=== PATIENT | female | born 1990 | race African-American/Black ===

== ENCOUNTER 2017-05-23 08:06 | Emergency (ER) | payer SELFPAY ==
[~2017-05-23] VITALS: Ht 162.6 cm; Wt 64.9 kg
[~2017-05-23 08:06] MED LIST: ALBUTEROL SULF8.5 GM INH; ANTIVERT25 MG ORAL; IBUPROFEN600 MG ORAL; IBUPROFEN600 MG PO; NEXIUM40 MG ORAL; NKM; ROBAXIN-750750 MG PO
[2017-05-23] MEDS ORDERED: NKM (08:13)
[2017-05-23] MEDS ORDERED: DiphenhydrAMINE 50mg/ml Inj IVP ONE (08:15)
[2017-05-23] MEDS ORDERED: Metoclopramide 10mg/2ml Inj IVP ONE (08:15)
[2017-05-23 08:25] VITALS: BP 120/68
[2017-05-23] MEDS ORDERED: LORazepam Inj 2mg/ml 1ml IV ONE (08:30)
--- NOTE | 2017-05-23 08:33 | Emergency Room Report ---
History of Present Illness General Chief Complaint: Nausea, Vomiting, and Diarrhea Source: Patient, Medical Record Present Illness HPI Patient presents fairly histrionic complaining of nausea vomiting Also complains of epigastric discomfort Patient reports the pain started this morning Upon arriving into the room patient was touching herself in the privates And soon after that began gagging herself to induce vomiting At this time denies any chest pain denies any back or flank pain The epigastric pain is 3/10 burning but the patient's mainly concerned about nausea as well Allergies: Coded Allergies: No Known Allergies (Unverified , 07/27/12) Patient History Past Medical History: see triage record Pertinent Family History: none Reviewed Nursing Documentation: PMH: Agreed, PSxH: Agreed Nursing Documentation-PMH Past Medical History: No History, Except For Hx Gastrointestinal Problems: Yes - GERD Review of Systems All Other Systems: negative except mentioned in HPI Physical Exam Vital Signs Date Time Temp Pulse Resp B/P Pulse Ox O2 Delivery O2 Flow Rate FiO2 05/23/17 08:11 97.5 66 20 111/72 97 Room Air Sp02 EP Interpretation: reviewed, normal General Appearance: mild distress - somewhat histrionic Head: normocephalic, atraumatic Eyes: bilateral eye EOMI, bilateral eye PERRL ENT: hearing grossly normal, normal pharynx, TMs + canals normal, uvula midline Neck: full range of motion, supple, no meningismus, no bony tend Respiratory: lungs clear, normal breath sounds, no rhonchi, no respiratory distress, no retraction, no accessory muscle use Cardiovascular #1: normal peripheral pulses, regular rate, rhythm, no edema, no gallop, no JVD, no murmur Gastrointestinal: normal bowel sounds, non tender - On palpation however subjectively points epigastric area, soft, no mass, no organomegaly, non- distended, no guarding, no hernia, no pulsatile mass, no rebound Genitourinary: no CVA tenderness Musculoskeletal: normal inspection, back normal Neurologic: oriented x3, responsive, floor trader III-XII nml as tested, motor strength/ tone normal, sensory intact Psychiatric: other - Somewhat histrionic Skin: normal color, no rash, warm/dry, palpation normal Lymphatic: normal inspection, no adenopathy Medical Decision Making Diagnostic Impression: Primary Impression: Nausea, vomiting, and diarrhea ER Course With the patient's history and examination, multiple differentials considered, including but not limited to , ectopic , ovarian torsion, gastritis, cholecystitis, pancreatitis, appendicitis After further intervention patient has significantly better White blood cell count was very minimally elevated Patient has had several presentations with fairly similar findings I did discuss with him possible marijuana use, leading to cyclical vomiting type pathology Patient did not require acute emergency CAT scan any as her abdomen remained soft and reevaluation reveals improved conditions the patient will have close outpatient followup Labs Test 05/23/17 08:29 White Blood Count 12.3 K/UL (4.8-10.8) Red Blood Count 4.20 M/UL (4.20-5.40) Hemoglobin 13.4 G/DL (12.0-16.0) Hematocrit 42.1 % (37.0-47.0) Mean Corpuscular Volume 100 FL (80-99) Mean Corpuscular Hemoglobin 32.0 PG (27.0-31.0) Mean Corpuscular Hemoglobin Concent 31.9 G/DL (32.0-36.0) Red Cell Distribution Width 12.4 % (11.6-14.8) Platelet Count 281 K/UL (150-450) Mean Platelet Volume 7.5 FL (6.5-10.1) Neutrophils (%) (Auto) 68.1 % (45.0-75.0) Lymphocytes (%) (Auto) 23.5 % (20.0-45.0) Monocytes (%) (Auto) 6.2 % (1.0-10.0) Eosinophils (%) (Auto) 0.9 % (0.0-3.0) Basophils (%) (Auto) 1.2 % (0.0-2.0) Urine Color Pale yellow Urine Appearance Clear Urine pH 5 (4.5-8.0) Urine Specific [place] 1.020 (1.005-1.035) Urine Protein 1+ (NEGATIVE) Urine Glucose (UA) Negative (NEGATIVE) Urine Ketones Negative (NEGATIVE) Urine Occult Blood Negative (NEGATIVE) Urine Nitrite Negative (NEGATIVE) Urine Bilirubin Negative (NEGATIVE) Urine Urobilinogen Normal MG/DL (0.0-1.0) Urine Leukocyte Esterase 1+ (NEGATIVE) Urine RBC 2-4 /HPF (0 - 2) Urine WBC 0-2 /HPF (0 - 2) Urine Squamous Epithelial Cells Occasional /LPF Urine Bacteria Few /HPF (NONE) Urine Mucus Few /LPF (NONE/OCC) Urine HCG, Qualitative Negative Sodium Level 141 mEQ/L (135-145) Potassium Level 3.4 mEQ/L (3.4-4.9) Chloride Level 101 mEQ/L (98-107) Carbon Dioxide Level 25 mEQ/L (20-30) Anion Gap 15 (5-15) Blood Urea Nitrogen 12 mg/dL (7-23) Creatinine 1.1 mg/dL (0.5-0.9) Estimat Glomerular Filtration Rate > 60 mL/min (>60) Glucose Level 130 mg/dL (74-106) Calcium Level 10.8 mg/dL (8.6-10.2) Total Bilirubin 0.8 mg/dL (0.0-1.2) Aspartate Amino Transf (AST/SGOT) 24 U/L (5-40) Alanine Aminotransferase (ALT/SGPT) 16 U/L (3-33) Alkaline Phosphatase 41 U/L (35-104) Total Protein 8.9 g/dL (6.6-8.7) Albumin 5.7 g/dL (3.5-5.2) Globulin 3.2 g/dL Albumin/Globulin Ratio 1.7 (1.0-2.7) Lipase 35 U/L (< 60) Urine Opiates Screen Negative (NEGATIVE) Urine Barbiturates Screen Negative (NEGATIVE) Phencyclidine (PCP) Screen Negative (NEGATIVE) Urine Amphetamines Screen Negative (NEGATIVE) Urine Benzodiazepines Screen Negative (NEGATIVE) Urine Cocaine Screen Negative (NEGATIVE) Urine Marijuana (THC) Screen Positive (NEGATIVE) Last Vital Signs Date Time Temp Pulse Resp B/P Pulse Ox O2 Delivery O2 Flow Rate FiO2 05/23/17 08:11 97.5 66 20 111/72 97 Room Air Status: improved Disposition: HOME, SELF-CARE Condition: Improved Scripts Famotidine (PEPCID AC) 20 Mg Tablet 20 MG PO DAILY, #20 TAB Prov: LAMINE MCLAUGHLIN D.O. 05/23/17 Ondansetron Odt* (ZOFRAN ODT*) 4 Mg Tab.rapdis 4 MG ORAL Q6H Y for Nausea & Vomiting, #12 TAB 0 Refills Prov: LAMINE MCLAUGHLIN D.O. 05/23/17 Additional Instructions: Patient is provided with the discharge instructions notified to follow up with primary doctor in the next 2-3 days otherwise return to the er with any worsening symptoms. Please note that this report is being documented using [employer] technology. This can lead to erroneous entry secondary to incorrect interpretation by the dictating instrument. LAMINE MCLAUGHLIN D.O. May 23, 2017 08:32
[2017-05-23 08:37] LABS: APPEARANCE,URINE CLEAR; KETONES,URINE NEGATIVE (NEGATIVE); LEUKOCYTE ESTERASE ,URINE 1+ (NEGATIVE); NITRITE,URINE NEGATIVE (NEGATIVE); PH,URINE 5 (4.5-8.0); PROTEIN,URINE 1+ (NEGATIVE); UROBILINOGEN,URINE NORMAL MG/DL (0.0-1.0)
[2017-05-23 08:39] LABS: BASOPHILS % (AUTO) 1.2 % (0.0-2.0); EOSINOPHILS % (AUTO) 0.9 % (0.0-3.0); LYMPHOCYTES % (AUTO) 23.5 % (20.0-45.0); MEAN CORPUSCULAR HGB CONC 31.9 G/DL (32.0-36.0); MEAN CORPUSCULAR VOLUME 100 FL (80-99); MEAN PLATELET VOLUME 7.5 FL (6.5-10.1); MONOCYTES % (AUTO) 6.2 % (1.0-10.0); NEUTROPHILS % (AUTO) 68.1 % (45.0-75.0); PLATELET COUNT 281 K/UL (150-450); RED CELL DISTRIBUTION WIDTH 12.4 % (11.6-14.8); WHITE BLOOD COUNT 12.3 K/UL (4.8-10.8)
[2017-05-23 08:45] LABS: BACTERIA,URINE FEW /HPF; MUCUS,URINE FEW /LPF (NONE/OCC); SQUAMOUS EPITHELIAL CELL,UR OCCASIONAL /LPF (NONE/OCC); WBC,URINE 0-2 /HPF (0 - 2)
[2017-05-23 08:55] LABS: ALANINE AMINOTRANSFERASE 16 U/L (3-33); ALBUMIN/GLOBULIN RATIO 1.7 (1.0-2.7); ANION GAP 15 (5-15); ASPARTATE AMINO TRANSFERASE 24 U/L (5-40); CALCIUM 10.8 mg/dL (8.6-10.2); CARBON DIOXIDE 25 mEQ/L (20-30); CHLORIDE 101 mEQ/L (98-107); CREATININE 1.1 mg/dL (0.5-0.9); GLOMERULAR FILTRATION RATE > 60 mL/min (>60); HEMOLYSIS 7; LIPASE 35 U/L (< 60); POTASSIUM 3.4 mEQ/L (3.4-4.9); SODIUM 141 mEQ/L (135-145); TOTAL PROTEIN 8.9 g/dL (6.6-8.7)
[2017-05-23 10:35] VITALS: BP 104/57
[2017-05-23] MEDS ORDERED: Morphine Sulfate 4mg/ml Inj IVP ONE (11:30)
[2017-05-23] MEDS ORDERED: Famotidine 20 MG/ 2ML VIAL IVP ONE (11:30)
[2017-05-23] MEDS ORDERED: PEPCID AC20 M2 PO (12:12)
[2017-05-23] MEDS ORDERED: ZOFRAN ODT4 MG ORAL (12:12)
[2017-05-23 12:30] VITALS: BP 104/57
== END 2017-05-23 12:30 | disposition home or self-care (01) ==
LOC: EMR 08:32
DX: R11.2 Nausea with vomiting, unspecified (principal); R19.7 Diarrhea, unspecified; K21.9 Gastro-esophageal reflux disease without esophagitis
CPT/HCPCS: 36415; 80053; 80300; 81003; 81025; 83690; 85025; 96361; 96374; 96375; 99284; J1200; J2270; J2405; J2765; S0028

== ENCOUNTER 2017-10-03 04:10 | Emergency (ER) | payer SELFPAY ==
[~2017-10-03] VITALS: Ht 162.6 cm; Wt 62.1 kg
[~2017-10-03 04:10] MED LIST changes: +PEPCID AC20 M2 PO; +ZOFRAN ODT4 MG ORAL
[2017-10-03 04:21] VITALS: BP 109/67
[2017-10-03] MEDS ORDERED: TESSALON PERLE100 MG ORAL (04:52)
[2017-10-03] MEDS ORDERED: IBUPROFEN600 MG ORAL (04:52)
[2017-10-03] MEDS ORDERED: Acetaminophen 500mg (ES) tab ORAL ONE (05:00)
--- NOTE | 2017-10-03 05:05 | Emergency Room Report ---
History of Present Illness General Chief Complaint: Flu Like Symptoms Source: Patient, Medical Record Present Illness HPI 27-year-old female, no significant past medical history, presenting with subjective chills, cough, no sputum, runny nose, for one day. Denies any sick contacts or recent travel. Denies any shortness of breath Allergies: Coded Allergies: No Known Allergies (Unverified , 07/27/12) Patient History Past Medical History: see triage record Past Surgical History: none Pertinent Family History: none Last Menstrual Period: now Reviewed Nursing Documentation: PMH: Agreed, PSxH: Agreed Nursing Documentation-PMH Past Medical History: No History, Except For Hx Gastrointestinal Problems: Yes - GERD Review of Systems All Other Systems: negative except mentioned in HPI Physical Exam Vital Signs Date Time Temp Pulse Resp B/P (MAP) Pulse Ox O2 Delivery O2 Flow Rate FiO2 10/03/17 04:12 99.1 94 16 109/67 100 Room Air Sp02 EP Interpretation: reviewed, normal General Appearance: normal inspection, well appearing, no apparent distress, alert, GCS 15, non-toxic Head: normocephalic, atraumatic Eyes: bilateral eye normal inspection, bilateral eye PERRL, bilateral eye EOMI ENT: normal ENT inspection, normal pharynx, normal voice, moist mucus membranes Neck: normal inspection, full range of motion, supple Respiratory: normal inspection, lungs clear, normal breath sounds, no respiratory distress, no retraction, no wheezing, speaking full sentences, chest symmetrical Cardiovascular #1: normal inspection, regular rate, rhythm, no edema, normal capillary refill Cardiovascular #2: 2+ radial (R), 2+ radial (L) Gastrointestinal: normal inspection, non tender, soft, non-distended, no guarding Musculoskeletal: normal inspection, back normal, normal range of motion, non- tender Neurologic: normal inspection, alert, oriented x3, responsive, motor strength/ tone normal, sensory intact, normal gait, speech normal Psychiatric: normal inspection, judgement/insight normal, memory normal Skin: normal inspection, normal color, no rash, warm/dry, well hydrated, normal turgor Medical Decision Making Diagnostic Impression: Primary Impression: Influenza-like symptoms ER Course 27-year-old female, appears well, cough and runny nose for one day DDX: Viral URI Plan: None in the emergency room ER course: Patient remains nontoxic, not in resp distress. Disposition: Patient is to be discharged home with a prescription of Motrin and Tessalon Perles Strict precautions discussed with patient on when to return to the emergency room including hemoptysis, high fevers, chills, SOB, chest pain which may indicate severe illness. Patient is to follow up with their primary care doctor within 5 days. Patient agrees with plan. Please note that this Emergency Department Report was dictated using [employer] inspector technology software, occasionally this can lead to erroneous entry secondary to interpretation by the dictation equipment Last Vital Signs Date Time Temp Pulse Resp B/P (MAP) Pulse Ox O2 Delivery O2 Flow Rate FiO2 10/03/17 04:21 94 16 Room Air 10/03/17 04:21 99.1 109/67 100 Disposition: HOME, SELF-CARE Condition: Stable Scripts Ibuprofen* (MOTRIN*) 600 Mg Tablet 600 MG ORAL Q6H Y for For Pain, #30 TAB Prov: Rafael De La Paz M.D. 10/03/17 Benzonatate* (TESSALON PERLE*) 100 Mg Capsule 100 MG ORAL THREE TIMES A DAY for 7 Days, PERLE 0 Refills Prov: Rafael De La Paz M.D. 10/03/17 Referrals: NOT CHOSEN IPA/,REFERRING (PCP) Patient Instructions: Viral Respiratory Infection, [id number] Rafael De La Paz M.D. Oct 03, 2017 05:05
[2017-10-03 05:07] VITALS: BP 109/67
== END 2017-10-03 05:07 | disposition home or self-care (01) ==
LOC: EMR 04:32
DX: J11.1 Influenza due to unidentified influenza virus with other respiratory manifestations (principal); K21.9 Gastro-esophageal reflux disease without esophagitis; R09.89 Other specified symptoms and signs involving the circulatory and respiratory systems
CPT/HCPCS: 99284

== ENCOUNTER 2017-10-16 07:18 | Emergency (ER) | payer SELFPAY ==
[~2017-10-16] VITALS: Ht 162.6 cm; Wt 61.2 kg
[~2017-10-16 07:18] MED LIST changes: +TESSALON PERLE100 MG ORAL
[2017-10-16] MEDS ORDERED: Ketorolac 30mg Inj IV ONE (07:45)
--- NOTE | 2017-10-16 07:48 | Emergency Room Report ---
History of Present Illness General Chief Complaint: Flu Like Symptoms Source: Patient Present Illness HPI She presents with flulike symptoms. She states that for the past day she has had a sore throat, bodyaches and fatigue. She states that she feels hot and cold. She has an occasional cough. She denies chest pain or abdominal pain. She denies nausea or vomiting. She denies diarrhea. She has no other complaints. Allergies: Coded Allergies: No Known Allergies (Unverified , 07/27/12) Patient History Past Medical History: GERD Social History: Reports: drug use - THC, Denies: smoking, alcohol use Last Menstrual Period: 2 weeks ago Now: No Reviewed Nursing Documentation: PMH: Agreed, PSxH: Agreed Nursing Documentation-PMH Past Medical History: No Stated History Hx Gastrointestinal Problems: Yes - GERD Review of Systems All Other Systems: negative except mentioned in HPI Physical Exam Vital Signs Date Time Temp Pulse Resp B/P (MAP) Pulse Ox O2 Delivery O2 Flow Rate FiO2 10/16/17 07:24 98.4 92 16 101/57 100 Room Air Sp02 EP Interpretation: reviewed, normal General Appearance: no apparent distress, alert, GCS 15, non-toxic Head: normocephalic, atraumatic Eyes: bilateral eye normal inspection, bilateral eye PERRL ENT: hearing grossly normal, no angioedema, normal voice, uvula midline, pharyngeal erythema Neck: full range of motion, supple/symm/no masses Respiratory: chest non-tender, lungs clear, normal breath sounds, speaking full sentences Cardiovascular #1: regular rate, rhythm, no edema Gastrointestinal: normal bowel sounds, non tender, soft, non-distended, no guarding, no rebound Rectal: deferred Musculoskeletal: back normal, gait/station normal, normal range of motion, non- tender Neurologic: alert, oriented x3, responsive, motor strength/tone normal, sensory intact, speech normal Psychiatric: judgement/insight normal, memory normal, mood/affect normal, no suicidal/homicidal ideation Skin: normal color, no rash, warm/dry, well hydrated Medical Decision Making Diagnostic Impression: Primary Impression: Viral syndrome ER Course This patient has a clinical presentation consistent with influenza/viral syndrome. There does not appear to be any emergency complications. I do not feel this patient needs admission at this time. The patient stable vital signs. I will give the patient a course of Tamiflu. The patient given close return precautions and followup instructions. Laboratory Tests Test 10/16/17 08:35 Urine Color Pale yellow Urine Appearance Clear Urine pH 9 (4.5-8.0) Urine Specific [place] 1.015 (1.005-1.035) Urine Protein 1+ (NEGATIVE) H Urine Glucose (UA) Negative (NEGATIVE) Urine Ketones Negative (NEGATIVE) Urine Occult Blood Negative (NEGATIVE) Urine Nitrite Negative (NEGATIVE) Urine Bilirubin Negative (NEGATIVE) Urine Urobilinogen Normal MG/DL (0.0-1.0) Urine Leukocyte Esterase 1+ (NEGATIVE) H Urine RBC 0-2 /HPF (0 - 2) Urine WBC 2-4 /HPF (0 - 2) Urine Squamous Epithelial Cells Few /LPF (NONE/OCC) Urine Bacteria Few /HPF (NONE) Urine HCG, Qualitative Negative Microbiology Date/Time Source Procedure Growth Status 10/16/17 08:35 Nasal Nares Influenza Types A,B Antigen (SAHRA) - Final Complete Last Vital Signs Date Time Temp Pulse Resp B/P (MAP) Pulse Ox O2 Delivery O2 Flow Rate FiO2 10/16/17 07:24 98.4 92 16 101/57 100 Room Air Status: improved Disposition: HOME, SELF-CARE Condition: Improved Departure Forms: Return to Work Return to Work in (Days): 3 Return to Work Date: Oct 20, 2017 Patient Instructions: Medication: Tamiflu (Oseltamivir), INFLUENZA (Adult) LISA LEIGH D.O. Oct 16, 2017 07:48
[2017-10-16 08:45] LABS: APPEARANCE,URINE CLEAR; BILIRUBIN, URINE NEGATIVE (NEGATIVE); COLOR,URINE PALE YELLOW; GLUCOSE, URINE (UA) NEGATIVE (NEGATIVE); KETONES,URINE NEGATIVE (NEGATIVE); LEUKOCYTE ESTERASE ,URINE 1+ (NEGATIVE); NITRITE,URINE NEGATIVE (NEGATIVE); PH,URINE 9 (4.5-8.0); PROTEIN,URINE 1+ (NEGATIVE); UROBILINOGEN,URINE NORMAL MG/DL (0.0-1.0)
[2017-10-16] MEDS ORDERED: TAMIFLU75 MG ORAL (10:36)
[2017-10-16 10:59] VITALS: BP 110/50
== END 2017-10-16 10:58 | disposition home or self-care (01) ==
LOC: EMR 08:08
DX: B34.9 Viral infection, unspecified (principal); K21.9 Gastro-esophageal reflux disease without esophagitis; F12.10 Cannabis abuse, uncomplicated
CPT/HCPCS: 81003; 81025; 86710; 96361; 96374; 99284; J1885

== ENCOUNTER 2018-07-30 19:32 | Emergency (ER) | payer MEDICAID ==
[~2018-07-30] VITALS: Ht 162.6 cm; Wt 68.0 kg
[~2018-07-30 19:32] MED LIST changes: +TAMIFLU75 MG ORAL
[2018-07-30 19:40] VITALS: BP 122/69
--- NOTE | 2018-07-30 19:49 | Emergency Room Report ---
History of Present Illness General Chief Complaint: Female Urogenital Problems Source: Patient, Medical Record Present Illness HPI 28-year-old female, , one miscarriage, currently 3 wks p/w vaginal bleeding x 1 days Patient states bleeding began last night, she went to [facility], was diagnosed with threatened miscarriage, had an ultrasound showing a gestational sac, was discharges morning. Then started to have some vaginal bleeding again, Has soaked 3 pads / day. no passage of clots. +crampy abdominal pain. Denies fever, chills, n/v, diarrhea, dysuria. Denies hx of ectopic pregnancies. Allergies: Coded Allergies: IBUPROFEN (Verified Allergy, Unknown, 07/30/18) Patient History Past Medical History: see triage record Past Surgical History: none Pertinent Family History: none Now: Yes Reviewed Nursing Documentation: PMH: Agreed; PSxH: Agreed Nursing Documentation-PMH Past Medical History: No History, Except For Hx Gastrointestinal Problems: Yes - GERD Review of Systems All Other Systems: negative except mentioned in HPI Physical Exam Vital Signs Date Time Temp Pulse Resp B/P (MAP) Pulse Ox O2 Delivery O2 Flow Rate FiO2 07/30/18 19:36 97.9 79 15 122/69 99 Room Air Sp02 EP Interpretation: reviewed, normal General Appearance: alert, GCS 15, non-toxic, mild distress Head: normocephalic, atraumatic Eyes: bilateral eye normal inspection, bilateral eye PERRL, bilateral eye EOMI ENT: normal ENT inspection, normal pharynx, normal voice, moist mucus membranes Neck: normal inspection, full range of motion, supple Respiratory: normal inspection, lungs clear, normal breath sounds, no respiratory distress, no retraction, no wheezing, speaking full sentences, chest symmetrical Cardiovascular #1: normal inspection, regular rate, rhythm, no edema, normal capillary refill Cardiovascular #2: 2+ radial (R), 2+ radial (L) Gastrointestinal: normal inspection, non tender, soft, non-distended, no guarding Musculoskeletal: normal inspection, back normal, normal range of motion, non- tender Neurologic: normal inspection, alert, oriented x3, responsive, motor strength/ tone normal, sensory intact, normal gait, speech normal Psychiatric: normal inspection, judgement/insight normal, memory normal Skin: normal inspection, normal color, no rash, warm/dry, well hydrated, normal turgor Medical Decision Making Diagnostic Impression: Primary Impression: Threatened in first trimester ER Course 28-year-old female, 3 weeks presents with vaginal bleeding pt has bhcg done at outside hospital 9am, bhcg 1305 DDX: Threatened / inevitable vs. ectopic Plan: cbc, bmp, bhcg, type and screen, ua, ucx pelvic sono Consider Rhogam is Rh- ER course: Pelvic sono: NO IUP has had some vaginal bleeding in ED. however nontoxic appearing, not dizzy. Pt has been ambulatory. VSS Disposition: Signed out to Dr. Ana sutton [facility] with [facility] for repeat bhcg and sono Please note that this Emergency Department Report was dictated using [employer] transcription editor technology software, occasionally this can lead to erroneous entry secondary to interpretation by the dictation equipment. CT/MRI/US Diagnostic Results CT/MRI/US Diagnostic Results : Imaging Test Ordered: PELVIC SONO Impression no IUP noted. small anechoic area but likely does not appear to be gestational sac, per US tech read Last Vital Signs Date Time Temp Pulse Resp B/P (MAP) Pulse Ox O2 Delivery O2 Flow Rate FiO2 07/30/18 19:36 97.9 79 15 122/69 99 Room Air Rafael De La Paz M.D. Jul 30, 2018 19:49
[2018-07-30 21:40] LABS: APPEARANCE,URINE CLEAR; BILIRUBIN, URINE NEGATIVE (NEGATIVE); COLOR,URINE PALE YELLOW; GLUCOSE, URINE (UA) NEGATIVE (NEGATIVE); KETONES,URINE NEGATIVE (NEGATIVE); LEUKOCYTE ESTERASE ,URINE NEGATIVE (NEGATIVE); NITRITE,URINE NEGATIVE (NEGATIVE); PH,URINE 5 (4.5-8.0); PROTEIN,URINE NEGATIVE (NEGATIVE); UROBILINOGEN,URINE NORMAL MG/DL (0.0-1.0)
[2018-07-30 21:42] LABS: BASOPHILS % (AUTO) 1.2 % (0.0-2.0); EOSINOPHILS % (AUTO) 1.8 % (0.0-3.0); HEMATOCRIT 37.2 % (37.0-47.0); HEMOGLOBIN 12.3 G/DL (12.0-16.0); LYMPHOCYTES % (AUTO) 37.2 % (20.0-45.0); MEAN CORPUSCULAR VOLUME 93 FL (80-99); MONOCYTES % (AUTO) 7.7 % (1.0-10.0); NEUTROPHILS % (AUTO) 52.1 % (45.0-75.0); PLATELET COUNT 212 K/UL (150-450); RED CELL DISTRIBUTION WIDTH 11.4 % (11.6-14.8); WHITE BLOOD COUNT 8.1 K/UL (4.8-10.8)
[2018-07-30 21:48] VITALS: BP 125/70
[2018-07-30 21:51] LABS: ANION GAP 7 mmol/L (5-15); BLOOD UREA NITROGEN 17 mg/dL (7-18); CALCIUM 9.6 MG/DL (8.5-10.1); CARBON DIOXIDE 28 MMOL/L (21-32); CHLORIDE 105 MMOL/L (98-107); CREATININE 0.9 MG/DL (0.55-1.30); POTASSIUM 4.3 MMOL/L (3.5-5.1); SODIUM 140 MMOL/L (136-145)
[2018-07-30 21:55] LABS: ALANINE AMINOTRANSFERASE 19 U/L (12-78); ALBUMIN 3.6 G/DL (3.4-5.0); ALKALINE PHOSPHATASE 51 U/L (46-116); ASPARTATE AMINO TRANSFERASE 15 U/L (15-37); BILIRUBIN,TOTAL 0.3 MG/DL (0.2-1.0)
--- NOTE | 2018-07-30 22:30 | Emergency Room Report ---
History of Present Illness General Chief Complaint: Female Urogenital Problems Source: Patient, Medical Record Present Illness Allergies: Coded Allergies: IBUPROFEN (Verified Allergy, Unknown, 07/30/18) Patient History Now: Yes Nursing Documentation-[facility] Past Medical History: No History, Except For Hx Gastrointestinal Problems: Yes - GERD Physical Exam Vital Signs Date Time Temp Pulse Resp B/P (MAP) Pulse Ox O2 Delivery O2 Flow Rate FiO2 07/30/18 19:36 97.9 79 15 122/69 99 Room Air Medical Decision Making Diagnostic Impression: Primary Impression: Threatened in first trimester ER Course Please refer to the initial note for the history exam and presentation Patient's beta Quant returns at 1400 Ultrasound shows questionable gestational sac in the endometrial region This is a very early Ectopic cannot be fully ruled out at this time however patient's abdomen remains soft patient's hemoglobin is normal Patient also remaining hemodynamically stable Review of type and Rh reveals o positive blood which was performed at the previous facility And patient is stable for close follow-up with [facility] She will return with any increased bleeding or pain Labs Test 07/30/18 21:20 White Blood Count 8.1 K/UL (4.8-10.8) Red Blood Count 4.00 M/UL (4.20-5.40) Hemoglobin 12.3 G/DL (12.0-16.0) Hematocrit 37.2 % (37.0-47.0) Mean Corpuscular Volume 93 FL (80-99) Mean Corpuscular Hemoglobin 30.8 PG (27.0-31.0) Mean Corpuscular Hemoglobin Concent 33.1 G/DL (32.0-36.0) Red Cell Distribution Width 11.4 % (11.6-14.8) Platelet Count 212 K/UL (150-450) Mean Platelet Volume 7.4 FL (6.5-10.1) Neutrophils (%) (Auto) 52.1 % (45.0-75.0) Lymphocytes (%) (Auto) 37.2 % (20.0-45.0) Monocytes (%) (Auto) 7.7 % (1.0-10.0) Eosinophils (%) (Auto) 1.8 % (0.0-3.0) Basophils (%) (Auto) 1.2 % (0.0-2.0) Urine Color Pale yellow Urine Appearance Clear Urine pH 5 (4.5-8.0) Urine Specific [place] 1.020 (1.005-1.035) Urine Protein Negative (NEGATIVE) Urine Glucose (UA) Negative (NEGATIVE) Urine Ketones Negative (NEGATIVE) Urine Blood 5+ (NEGATIVE) Urine Nitrite Negative (NEGATIVE) Urine Bilirubin Negative (NEGATIVE) Urine Urobilinogen Normal MG/DL (0.0-1.0) Urine Leukocyte Esterase Negative (NEGATIVE) Urine RBC Tntc /HPF (0 - 2) Urine WBC 0-2 /HPF (0 - 2) Urine Squamous Epithelial Cells Occasional /LPF Urine Bacteria Occasional /HPF (NONE) Urine HCG, Qualitative Positive (NEGATIVE) Sodium Level 140 MMOL/L (136-145) Potassium Level 4.3 MMOL/L (3.5-5.1) Chloride Level 105 MMOL/L (98-107) Carbon Dioxide Level 28 MMOL/L (21-32) Anion Gap 7 mmol/L (5-15) Blood Urea Nitrogen 17 mg/dL (7-18) Creatinine 0.9 MG/DL (0.55-1.30) Estimat Glomerular Filtration Rate > 60 mL/min (>60) Glucose Level 84 MG/DL (74-106) Calcium Level 9.6 MG/DL (8.5-10.1) Total Bilirubin 0.3 MG/DL (0.2-1.0) Aspartate Amino Transf (AST/SGOT) 15 U/L (15-37) Alanine Aminotransferase (ALT/SGPT) 19 U/L (12-78) Alkaline Phosphatase 51 U/L (46-116) Total Protein 7.2 G/DL (6.4-8.2) Albumin 3.6 G/DL (3.4-5.0) Globulin 3.6 g/dL Albumin/Globulin Ratio 1.0 (1.0-2.7) Lipase 183 U/L (73-393) Human Chorionic Gonadotropin, Quant 1491 mIU/mL (1-6) CT/MRI/US Diagnostic Results CT/MRI/US Diagnostic Results : Impression pelvic ultrasound:tiny echoic structure in endometrium... refer to report for full specific Last Vital Signs Date Time Temp Pulse Resp B/P (MAP) Pulse Ox O2 Delivery O2 Flow Rate FiO2 07/30/18 21:48 74 18 125/70 99 Room Air 07/30/18 19:40 97.9 Status: improved Disposition: HOME, SELF-CARE Condition: Stable Referrals: NOT CHOSEN IPA/MD,REFERRING (PCP) Patient Instructions: Threatened Miscarriage, [id number] Additional Instructions: Please follow up with your OBGYN in 3 days Ishmael Perez DO Jul 30, 2018 22:30
[2018-07-30 22:45] VITALS: BP 119/68
[2018-07-30 22:50] VITALS: BP 119/68
--- NOTE | 2018-07-31 10:29 | Diagnostic Imaging Report ---
Indication: Positive test, pelvic pain and vaginal bleeding Technique: Transabdominal and transvaginal images. Doppler interrogation of the bilateral ovaries Comparison: none Findings: Uterus measures 6.6 cm length by 3.6 cm AP. And endometrium measures 8 mm thick. 4 mm fluid collection is seen within the upper endocervical canal. No yolk sac or parts or heart activity demonstrated. No myometrial abnormality. Right ovary measures 3.2 cm in length. The left ovary could not be demonstrated. Trace free cul-de-sac fluid demonstrated. Impression: 4 mm fluid collection in the upper endocervical canal. This is possibly but not definitely a gestational sac. If a gestational sac, low position raises concern for threatened . This could also represent a pseudogestational sac of ectopic . Follow-up with serial beta hCGs, follow-up sonography is indicated is recommended Nonvisualized left ovary. Small amount of free cul-de-sac fluid, presumably physiologic This agrees with the preliminary interpretation provided overnight by [facility].
== END 2018-07-30 22:50 | disposition home or self-care (01) ==
LOC: EMR 20:59
DX: O20.0 Threatened abortion (principal); Z3A.01 Less than 8 weeks gestation of pregnancy; Z88.6 Allergy status to analgesic agent
CPT/HCPCS: 36415; 76801; 76830; 80053; 81003; 81025; 83690; 84702; 85025; 86850; 86900; 86901; 99284

== ENCOUNTER 2018-09-28 11:11 | Emergency (ER) | payer MEDICAID ==
[~2018-09-28] VITALS: Ht 162.6 cm; Wt 68.0 kg
[2018-09-28] MEDS ORDERED: Tylenol #3 tab (300mg/30mg) PO ONE (12:00)
[2018-09-28 12:50] VITALS: BP 124/74
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
== END 2018-09-28 12:50 | disposition left against medical advice (07) ==
LOC: EMR 11:50
DX: M54.2 Cervicalgia (principal); R51 Headache; M54.6 Pain in thoracic spine; Y04.0XXA Assault by unarmed brawl or fight, initial encounter; Y92.9 Unspecified place or not applicable; K21.9 Gastro-esophageal reflux disease without esophagitis
CPT/HCPCS: 81025; 99283